=== PATIENT | female | born 1970 | race Two or more races ===

== ENCOUNTER 2019-10-28 13:39 | Emergency (ER) | payer OTHER ==
[~2019-10-28] VITALS: Ht 160 cm; Wt 81.6 kg
[2019-10-28] MEDS ORDERED: DICLOFENAC SODI75 MG PO (17:51)
== END 2019-10-28 17:57 | disposition home or self-care (01) ==
LOC: ER 13:39
DX: M94.0 Chondrocostal junction syndrome [Tietze] (principal)